=== PATIENT | female | born 1960 | race Asian ===

== ENCOUNTER 2016-12-10 19:24 | Inpatient (IN) | payer MEDICAID ==
[~2016-12-10] VITALS: Ht 160 cm; Wt 72.1 kg
[2016-12-10] MEDS ORDERED: NKM (19:32)
--- NOTE | 2016-12-10 19:43 | Emergency Room Report ---
History of Present Illness General Chief Complaint: Stroke Symptoms Source: Patient Present Illness HPI Patient presents with complaints of right-sided numbness and weakness Patient reports that yesterday at 12:00 noon So approximately 30 hours ago patient had a decreased sensation to her right facial area Which was followed by weakness to her right arm And right leg patient reports that she was having continued weakness in the right hand especially tried to turkey picker her, breakfast bowl this morning approximately 10 hours ago Also having difficulty walking because of weakness of the right leg Patient felt that she cannot see anyone because it was Sunday and apparently a family/friend notified her to go to the emergency room Patient denies any chest pain denies any shortness of breath Denies any difficulty breathing Allergies: Coded Allergies: No Known Allergies (Unverified , 12/10/16) Patient History Past Medical History: see triage record Pertinent Family History: none Now: No Reviewed Nursing Documentation: PMH: Agreed, PSxH: Agreed Review of Systems All Other Systems: negative except mentioned in HPI Physical Exam Vital Signs Date Time Temp Pulse Resp B/P Pulse Ox O2 Delivery O2 Flow Rate FiO2 12/10/16 19:28 97.9 70 18 165/91 94 Sp02 EP Interpretation: reviewed, normal General Appearance: no apparent distress Head: normocephalic, atraumatic Eyes: right eye other - There is evidence of what appears to be slight drooping of the upper eyelid compared to the left, bilateral eye PERRL ENT: hearing grossly normal, normal pharynx, other - Equal smile Neck: supple, thyroid normal Respiratory: lungs clear, normal breath sounds Cardiovascular #1: regular rate, rhythm, no edema Gastrointestinal: non tender, soft Genitourinary: no CVA tenderness Musculoskeletal: other - Patient has evidence of weakness on the right hand on the topography technician compared to the left hand, evaluation of the drift is somewhat nonspecific patient initially was able to lift her hand up on the right side, however on repeat evaluation patient has difficulty keeping the right arm elevated and shows evidence of possible drift down, Neurologic: alert, oriented x3, responsive, other - Patient's right lower extremity reveals weakness compared to the left upon attempting to lift she appears to be weaker also plantar flexion of the foot appears weaker than the left, , Skin: normal color, no rash Lymphatic: no adenopathy Medical Decision Making Diagnostic Impression: Primary Impression: Stroke-like episode Additional Impression: Right sided weakness ER Course Patient is complex with multiple differentials considered Patient was rushed to the CAT scan imaging At this time patient CAT scan was read as concerning chronicity left thalamus ischemia The patient's pulse well over the timeline for acute thrombolytic therapy As the symptoms initiated over 30 hours ago Patient initially requesting to be let go home after discussion of the importance of her findings and concerning findings Patient is agreeable to admission Patient was provided with aspirin Neurology consultation was made and patient admitted for further care Labs Test 12/10/16 20:10 White Blood Count 11.4 K/UL (4.8-10.8) Red Blood Count 4.47 M/UL (4.20-5.40) Hemoglobin 13.4 G/DL (12.0-16.0) Hematocrit 39.9 % (37.0-47.0) Mean Corpuscular Volume 89 FL (80-99) Mean Corpuscular Hemoglobin 30.1 PG (27.0-31.0) Mean Corpuscular Hemoglobin Concent 33.7 G/DL (32.0-36.0) Red Cell Distribution Width 11.8 % (11.6-14.8) Platelet Count 294 K/UL (150-450) Mean Platelet Volume 7.5 FL (6.5-10.1) Neutrophils (%) (Auto) 51.8 % (45.0-75.0) Lymphocytes (%) (Auto) 39.5 % (20.0-45.0) Monocytes (%) (Auto) 5.1 % (1.0-10.0) Eosinophils (%) (Auto) 2.6 % (0.0-3.0) Basophils (%) (Auto) 1.1 % (0.0-2.0) Prothrombin Time 9.2 SEC (9.30-11.50) Prothromb Time International Ratio 0.9 (0.9-1.1) Activated Partial Thromboplast Time 29 SEC (23-33) Sodium Level 136 mEQ/L (135-145) Potassium Level 3.8 mEQ/L (3.4-4.9) Chloride Level 94 mEQ/L (98-107) Carbon Dioxide Level 25 mEQ/L (20-30) Anion Gap 17 (5-15) Blood Urea Nitrogen 14 mg/dL (7-23) Creatinine 0.8 mg/dL (0.5-0.9) Estimat Glomerular Filtration Rate > 60 mL/min (>60) Glucose Level 217 mg/dL (74-106) Calcium Level 9.6 mg/dL (8.6-10.2) Total Bilirubin 0.2 mg/dL (0.0-1.2) Aspartate Amino Transf (AST/SGOT) 23 U/L (5-40) Alanine Aminotransferase (ALT/SGPT) 27 U/L (3-33) Alkaline Phosphatase 54 U/L (35-104) Total Creatine Kinase 133 U/L (26-140) Creatine Kinase MB 1.9 ng/mL (< 3.8) Creatine Kinase MB Relative Index 1.4 Troponin I < 0.30 ng/mL (<=0.30) Total Protein 7.6 g/dL (6.6-8.7) Albumin 4.3 g/dL (3.5-5.2) Globulin 3.3 g/dL Albumin/Globulin Ratio 1.3 (1.0-2.7) EKG Diagnostic Results Rate: normal Rhythm: NSR ST Segments: no acute changes Rhythm Strip Diag. Results EP Interpretation: yes Rate: 66 Rhythm: NSR, no PVC's, no ectopy Chest X-Ray Diagnostic Results EP Interpretation: Yes Findings: no consolidation, no effusion, no pneumothorax, other - There is a mildly increased curvature to the aorta Number of Views: 1 CT/MRI/US Diagnostic Results CT/MRI/US Diagnostic Results : Impression CT head read by radiology: No hemorrhage, small ischemic focus in the left thalamus of uncertain chronicity Last Vital Signs Date Time Temp Pulse Resp B/P Pulse Ox O2 Delivery O2 Flow Rate FiO2 12/10/16 19:28 97.9 70 18 165/91 94 Status: improved Disposition: ADMITTED INPATIENT Condition: Serious CORINE GARCIA D.O. Dec 10, 2016 19:43
[2016-12-10 19:45] VITALS: BP 170/76
[2016-12-10 20:26] LABS: BASOPHILS % (AUTO) 1.1 % (0.0-2.0); EOSINOPHILS % (AUTO) 2.6 % (0.0-3.0); LYMPHOCYTES % (AUTO) 39.5 % (20.0-45.0); MEAN CORPUSCULAR HEMOGLOBIN 30.1 PG (27.0-31.0); MEAN CORPUSCULAR HGB CONC 33.7 G/DL (32.0-36.0); MEAN CORPUSCULAR VOLUME 89 FL (80-99); MEAN PLATELET VOLUME 7.5 FL (6.5-10.1); MONOCYTES % (AUTO) 5.1 % (1.0-10.0); NEUTROPHILS % (AUTO) 51.8 % (45.0-75.0); PLATELET COUNT 294 K/UL (150-450); RED BLOOD COUNT 4.47 M/UL (4.20-5.40); RED CELL DISTRIBUTION WIDTH 11.8 % (11.6-14.8); WHITE BLOOD COUNT 11.4 K/UL (4.8-10.8)
[2016-12-10 20:38] LABS: INR 0.9 (0.9-1.1); PROTHROMBIN TIME 9.2 SEC (9.30-11.50)
[2016-12-10 20:44] LABS: ALANINE AMINOTRANSFERASE 27 U/L (3-33); ALBUMIN/GLOBULIN RATIO 1.3 (1.0-2.7); ANION GAP 17 (5-15); ASPARTATE AMINO TRANSFERASE 23 U/L (5-40); CALCIUM 9.6 mg/dL (8.6-10.2); CARBON DIOXIDE 25 mEQ/L (20-30); CHLORIDE 94 mEQ/L (98-107); CREATININE 0.8 mg/dL (0.5-0.9); GLOMERULAR FILTRATION RATE > 60 mL/min (>60); HEMOLYSIS 15; POTASSIUM 3.8 mEQ/L (3.4-4.9); SODIUM 136 mEQ/L (135-145); TOTAL PROTEIN 7.6 g/dL (6.6-8.7); TROPONIN I < 0.30 ng/mL (<=0.30)
[2016-12-10 20:54] LABS: CKMB 1.9 ng/mL (< 3.8)
[2016-12-10 22:01] VITALS: BP 168/100
[2016-12-10 23:32] VITALS: BP_SYST 133; BP_SYST 179; BP_DIAS 84; BP_DIAS 95
[2016-12-11] VITALS (7 sets, daily range): BP systolic 131–161; BP diastolic 72–97
[2016-12-11] MEDS ORDERED: NS w/KCl 20mEq 1,000 ML IV SCH
[2016-12-11] MEDS: NS w/KCl 20mEq 1,000 ML IV SCH ×3 (01:52→20:39)
[2016-12-11 08:07] LABS: CHOLESTEROL/HDL RATIO 7.2 (3.3-4.4)
[2016-12-11 08:13] LABS: HEMOGLOBIN A1C 8.9 % (< 6.0)
[2016-12-11 08:18] LABS: THYROID STIMULATING HORMONE 2.81 uIU/mL (0.300-4.500)
[2016-12-11 08:32] LABS: TROPONIN I < 0.30 ng/mL (<=0.30)
--- NOTE | 2016-12-11 09:06 | Diagnostic Imaging Report ---
Indications: Right-sided weakness Technique: Spiral acquisitions obtained through the brain. Angled axial and coronal 5 x 5 mm slices were reconstructed. Total dose length product 1369 mGycm. CTDI vol(s) 70 mGy Comparison: None Findings: There is mild age-related cerebral cortical volume loss. Normal size ventricles. There is expansion of the right maxillary sinus, which appears to be bicompartmental, with is probably a mucocele. The sinuses are otherwise unremarkable. The orbits are unremarkable. The calvarium is intact. There is a lacunar infarct posterior limb left internal capsule this is probably old, but could be subacute. No acute hemorrhage or edema. No mass effect nor midline shift. Normal louis-white differentiation. Impression: Age indeterminate although likely old left basal ganglia lacunar infarct. Consider MRI for more sensitive evaluation if clinically indicated Negative for acute intracranial bleed or mass effect Right maxillary sinus mucocele, incompletely visualized This agrees with the preliminary interpretation provided overnight by [facility]. The CT scanner at [facility] is accredited by the [employer] and the scans are performed using protocols designed to limit radiation exposure to as low as reasonably achievable to attain images of sufficient resolution adequate for diagnostic evaluation.
[2016-12-11] MEDS: Pantoprazole Inj IVP SCH (09:28)
[2016-12-11] MEDS: Aspirin EC 81mg tab ORAL SCH (09:28)
--- NOTE | 2016-12-11 12:50 | Neurology Progress Note ---
Objective Physical Exam Last Vital Signs Date Time Temp Pulse Resp B/P Pulse Ox O2 Delivery O2 Flow Rate FiO2 12/11/16 11:29 97.3 70 18 161/97 98 Room Air Laboratory Tests Test 12/10/16 20:10 12/11/16 06:19 White Blood Count 11.4 K/UL (4.8-10.8) H Red Blood Count 4.47 M/UL (4.20-5.40) Hemoglobin 13.4 G/DL (12.0-16.0) Hematocrit 39.9 % (37.0-47.0) Mean Corpuscular Volume 89 FL (80-99) Mean Corpuscular Hemoglobin 30.1 PG (27.0-31.0) Mean Corpuscular Hemoglobin Concent 33.7 G/DL (32.0-36.0) Red Cell Distribution Width 11.8 % (11.6-14.8) Platelet Count 294 K/UL (150-450) Mean Platelet Volume 7.5 FL (6.5-10.1) Neutrophils (%) (Auto) 51.8 % (45.0-75.0) Lymphocytes (%) (Auto) 39.5 % (20.0-45.0) Monocytes (%) (Auto) 5.1 % (1.0-10.0) Eosinophils (%) (Auto) 2.6 % (0.0-3.0) Basophils (%) (Auto) 1.1 % (0.0-2.0) Prothrombin Time 9.2 SEC (9.30-11.50) L Prothromb Time International Ratio 0.9 (0.9-1.1) Activated Partial Thromboplast Time 29 SEC (23-33) Sodium Level 136 mEQ/L (135-145) Potassium Level 3.8 mEQ/L (3.4-4.9) Chloride Level 94 mEQ/L (98-107) L Carbon Dioxide Level 25 mEQ/L (20-30) Anion Gap 17 (5-15) H Blood Urea Nitrogen 14 mg/dL (7-23) Creatinine 0.8 mg/dL (0.5-0.9) Estimat Glomerular Filtration Rate > 60 mL/min (>60) Glucose Level 217 mg/dL (74-106) H Calcium Level 9.6 mg/dL (8.6-10.2) Total Bilirubin 0.2 mg/dL (0.0-1.2) Aspartate Amino Transf (AST/SGOT) 23 U/L (5-40) Alanine Aminotransferase (ALT/SGPT) 27 U/L (3-33) Alkaline Phosphatase 54 U/L (35-104) Total Creatine Kinase 133 U/L (26-140) Creatine Kinase MB 1.9 ng/mL (< 3.8) Creatine Kinase MB Relative Index 1.4 Troponin I < 0.30 ng/mL (<=0.30) < 0.30 ng/mL (<=0.30) Total Protein 7.6 g/dL (6.6-8.7) Albumin 4.3 g/dL (3.5-5.2) Globulin 3.3 g/dL Albumin/Globulin Ratio 1.3 (1.0-2.7) Hemoglobin A1c 8.9 % (< 6.0) H Triglycerides Level 226 mg/dL (< 150) H Cholesterol Level 223 mg/dL (< 200) H LDL Cholesterol 147 mg/dL (60-99) H HDL Cholesterol 31 mg/dL (> 60) Cholesterol/HDL Ratio 7.2 (3.3-4.4) H Thyroid Stimulating Hormone (TSH) 2.810 uIU/mL (0.300-4.500) Impression/Recommendations Problems: (1) Acute ischemic left MCA stroke (2) HTN (hypertension) (3) Hyperlipidemia (4) Anxiety Status: unchanged Recommendations # dictated [id number] PHIL HUDSON Dec 11, 2016 12:50
--- NOTE | 2016-12-11 12:52 | Diagnostic Imaging Report ---
Indications: Right-sided weakness and numbness, evidence of acute CVA on recent MRI Technique: 3D [id number] images obtained through the [facility] [place]. MIP reconstructions were generated in multiple rotational projections Comparison: MRI performed at same time, 12/10/[address] Findings: The distal internal carotid arteries are patent and nonstenotic. Bilateral A1 segments and proximal some anterior cerebral arteries are patent, nonstenotic. There is a patent anterior communicating artery. There is a suggestion of a high-grade stenosis of the left M1 segment, with diffusely diminished flow within the distal middle cerebral circulation. The right M1 segment and branches appear unremarkable. The posterior circulation demonstrates small codominant vertebral arteries with a high confluence. There is a high takeoff of the right PICA. Patent nonstenotic basilar artery and bilateral superior cerebellar arteries. There is origin of the left posterior cerebral artery. No right posterior communicating artery is demonstrated. Patent right P1 segment and proximal branches. There is no evidence of aneurysm or vascular malformation Impression: Findings consistent with high-grade stenosis of the left middle cerebral artery origin and resultant marked diminution of flow within the left middle cerebral artery distribution. Negative for evidence of aneurysm or vascular malformation Variant [place] anatomy, as described
--- NOTE | 2016-12-11 13:56 | Diagnostic Imaging Report ---
Indication: 56-year-old female inpatient with right-sided weakness and numbness, recent abnormal head CT Technique: sagittal T1 fast spin echo, axial T1 and T2 FLAIR PROPELLER, axial T2 FS PROPELLER, T2* GRE, axial diffusion weighted images, post contrast axial and coronal T1 FLAIR PROPELLER images. ADC and exponential ADC maps generated Comparison: Reference made to head CT 8 12/10/2016 Findings: . There is an area of restricted diffusion in the left basal ganglia region, involving the posterior limb of the internal capsule and the posterior thalamus, corresponding to area of hypoattenuation seen on recent head CT. Is also abnormal increased signal on the T2-weighted images and decreased signal on the T1-weighted images. No other foci of restricted diffusion are demonstrated. No acute hemorrhage. No mass effect or midline shift. Nonspecific T2 hyperintensities are seen in the right frontal, right parietal, and right posterior temporal deep white matter. No mass effect nor midline shift. No abnormal contrast enhancement. There is minimal prominence of the ventricles and extra-axial CSF spaces. There is complete opacification of the bipartite right maxillary sinus. The vascular flow voids are preserved.. Impression: Focus of diffusion restriction in the left basal ganglia region, as described, consistent with acute/subacute lacunar infarct. This corresponds to the abnormality described on recent CT scan. Negative for acute intracranial bleed, mass effect, or contrast enhancing lesion. Nonspecific foci of increased T2 hyperattenuation in the right convexity the white matter. Most likely represent foci of chronic ischemic change, demyelinating disease also a possibility but less likely.
--- NOTE | 2016-12-11 13:56 | Diagnostic Imaging Report ---
Indication: Chest pain Technique: One view of the chest Comparison: none Findings: Lungs and pleural spaces are clear. Heart size is normal . Aorta is tortuous and ectatic Impression: No acute process This agrees with the preliminary interpretation provided by the emergency room physician
[2016-12-11] MEDS: NovoLOG Insulin Flexpen SUBQ SCH ×2 (16:15→20:39)
--- NOTE | 2016-12-11 21:18 | Consultation ---
DATE OF CONSULTATION: 12/11/2016 NEUROLOGICAL CONSULTATION CONSULTING PHYSICIAN: Alexis Plascencia M.D. REFERRING PHYSICIAN: Bridgett Mahoney M.D. HISTORY OF PRESENT ILLNESS: The patient is a 56 years old female, seen in neurological consultation to evaluate acute stroke. The patient informed me that she has been under significant stress in the last two years. She has occasional elevated blood pressure and abnormal lipid panel, but was taken no medications. The day prior to admission, she went to bed noting that she has some numbness in the right side of the face and morning she woke up with numbness in her right face, right side of the body, weakness in the right upper and right lower extremity. Paramedics were called to the scene. She was brought to the emergency room, was complaining of being unable to lift objects in her right arm, significant limping when ambulation. Her vital signs on admission included blood pressure 165/91, heart rate of 70, and temperature 97.9. There was evidence of weakness on the right side of the body. The patient had a stat CT of the head revealed old left basal ganglia lacunar infarct, right maxillary sinus with no evidence of acute abnormalities, no midline shift. Laboratory work included CBC study with a WBC of 11.4, coagulation panel unremarkable. Chemistry panel with elevated triglycerides , cholesterol 223, LDL 147, hemoglobin A1C 8.9, blood sugar 217, and anion gap of 17. Following admission, vital signs remained stable, blood pressure fluctuating up to 161/97. PAST MEDICAL HISTORY: As mentioned, the patient has a history of hypertension, hyperlipidemia, now appears to have diabetes as well. History of ongoing stress for the last two years. Treatment limited to vitamins. FAMILY HISTORY: Noncontributory. SOCIAL HISTORY: She is single. She has a boyfriend. No alcohol. No drug abuse. Nonsmoker. 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 REVIEW OF SYMPTOMS: At this time, the patient has numbness and weakness in the right upper and right lower extremities. Difficulty ambulation, but denies having swallowing issues. PHYSICAL EXAMINATION: GENERAL: A well-developed, well-nourished female, not in acute distress, lying comfortably in bed. VITAL SIGNS: Blood pressure 161/97, respirations 18, and temperature 97.3. HEENT: Head, normocephalic. No evidence of injuries. Eyes, ears, and throat are clear. NECK: Supple. No meningeal signs. MUSCULOSKELETAL: Unremarkable. There are no deformities. Peripheral pulses 1+ and symmetric. MENTAL STATUS: Alert and oriented x3. Speech is fluent. Language intact. No aphasia. No apraxia. Cognitive function normal. Emotional, labile. CRANIAL NERVE II: Pupils both responding to light and accommodation. Extraocular movements intact. No nystagmus. Visual mora are full to confrontation. CRANIAL NERVE V: Normal corneal responses. Reduced right facial sensation to pinprick. CRANIAL NERVE VII: Slight droop, right nasolabial fold. CRANIAL NERVE VIII: Normal hearing. CRANIAL NERVES IX THROUGH XII: Tongue is in midline. MOTOR EXAMINATION: Motor examination revealed weakness, 3/5 right upper and right lower extremity. Normal muscle tone. Deep tendon reflexes 2+ and slightly higher on the right. Plantar response is questionable. Babinski on the right. SENSORY EXAMINATION: Decreased response to pin stimulation, right upper and right lower extremity. Gait not tested, but the patient reported being able to ambulate on her own holding to the frost. IMPRESSION: 1. Acute left MCA distribution ischemic stroke with right hemiparesis and right radha-sensory loss. 2. Hypertension. 3. Diabetes. 4. Hyperlipidemia. RECOMMENDATIONS: The patient who was not treated previously for major stroke risk factors, we will restart treatment for high blood pressure control, diabetes control, and statins. In addition, she will be maintained on aspirin 81 mg daily. The patient to be seen by PT/OT and speech therapy, acute rehabilitation anticipated. Thank you for allowing me to see this interesting patient in neurological consultation. Alexis Plascencia M.D. DR: LION JOB#: [id number] CC:
--- NOTE | 2016-12-11 22:18 | History and Physical Report ---
DATE OF ADMISSION: 12/10/2016 CHIEF COMPLAINT: Right-sided weakness and numbness. HISTORY OF PRESENT ILLNESS: This is a 56-year-old female, who lives at [facility] and is visiting the area. Yesterday morning the patient noticed a right-sided weakness and numbness. The patient has a history of hypertension, but she is noncompliant with therapy. The patient does not have a regular followup and neither she is taking any antihypertensive medications. Yesterday morning, she noticed right-sided weakness, inability to swallow, difficulty walking and numbness. She was told to go to the emergency department, which she did. PAST MEDICAL HISTORY: Hypertensive heart disease, left carotid stenosis, and type 2 diabetes mellitus. MEDICATIONS: None. ALLERGIES: No known drug allergies. FAMILY HISTORY: No known problems. SOCIAL HISTORY: She is nonsmoker and nondrinker. There is no history of illicit drug abuse. REVIEW OF SYSTEMS: HEENT: Hearing and eyesight are normal. Endocrine: No history of diabetes, thyroid, or adrenal problems. Respiratory: She denies shortness of breath, cough, or hemoptysis. Cardiovascular: She denies chest pain or palpitations. Genitourinary: She denies dysuria, frequency, urgency, or hematuria. Neurological: Please refer to history of present illness. PHYSICAL EXAMINATION: GENERAL: This is an elderly oriented female, who is in no acute distress. VITAL SIGNS: Blood pressure 161/97, pulse 70 regular, respirations 20, and temperature 97.3 degrees oral. HEENT: She has a right facial droop. NECK: Supple. Trachea midline. There was no lymphadenopathy or thyromegaly. There were no carotid bruits. LUNGS: Clear to auscultation and percussion. HEART: Regular rate and rhythm without rubs, murmurs, or gallops. ABDOMEN: Soft and nontender. Bowel sounds were active. EXTREMITIES: No clubbing, cyanosis, or edema. NEUROLOGIC: She is alert and oriented x4. Cranial nerves II through XII were intact except for the right facial droop. She has a right hemiparesis. LABORATORY AND ANCILLARY DATA: MRA and MRI of the neck show high-grade stenosis of the left middle cerebral artery. Head CT showed age indeterminate or likely old left basal ganglia lacunar infarct. CBC is within normal limits. CMP, glucose 217 and cholesterol 223. Troponin levels were within normal limits. Hemoglobin A1c is 8.9. ASSESSMENT: High-grade left carotid stenosis in a patient with a new cerebrovascular accident. PLAN: 1. Obtain MRI. 2. Obtain vascular surgery consult. 3. We will add 2000 ADA diet. Bridgett Mahoney M.D. DR: MELANIA JOB#: [id number] CC:
[2016-12-12] VITALS: BP 144/71
[2016-12-12 04:00] VITALS: BP 156/97
[2016-12-12] MEDS: NovoLOG Insulin Flexpen SUBQ SCH ×3 (06:22→16:36)
[2016-12-12] MEDS: NS w/KCl 20mEq 1,000 ML IV SCH (07:32)
[2016-12-12] MEDS: Aspirin EC 81mg tab ORAL SCH (08:42)
[2016-12-12] MEDS: Pantoprazole Inj IVP SCH (08:42)
--- NOTE | 2016-12-12 08:44 | Diagnostic Imaging Report ---
Indication: Right-sided weakness, acute CVA, abnormal cerebral MRA Technique: IV administration nonionic contrast. Arterial phase spiral acquisitions obtained through the neck. Multiplanar reconstructions were generated. Total dose length product 2072 mGycm. CTDIvol(s) 16x3, 99, 59 mGy. Radiation dose was minimized using automated exposure control Comparison: None Findings: Mildly ectatic but nonaneurysmal aortic arch, which deviates the trachea to the right.. Tortuous, widely patent nonstenotic right brachiocephalic artery. Tortuous but widely patent and nonstenotic right common carotid and internal carotid arteries. There is some calcific atherosclerotic plaquing of the carotid siphon. Tortuous, widely patent right proximal subclavian artery. Widely patent and nonstenotic right vertebral artery. It is diffusely small in caliber, and the left vertebral artery is the dominant side. Widely patent and nonstenotic left common carotid artery and left internal carotid artery. The internal carotid artery is tortuous. Widely patent and nonstenotic left proximal subclavian artery and left vertebral artery. There is no evidence of cervical mass or adenopathy. There is filling of the right maxillary sinus by an expansile mass with bony erosion, bleed also reported on earlier studies. The remaining sinuses are unremarkable. The orbits are unremarkable. The upper airway is unremarkable. The thyroid is unremarkable. The included lung demonstrate diffuse mild groundglass opacity. Impression: Negative for evidence of significant extracranial cerebrovascular insufficiency Mass lesion expanding the right maxillary sinus and eroding bone. Most likely a mucocele, but neoplasm cannot be completely ruled out. Recommend ENT consultation as clinically indicated Nonspecific diffuse faint pulmonary groundglass opacities The CT scanner at [facility] is accredited by the [employer] and the scans are performed using protocols designed to limit radiation exposure to as low as reasonably achievable to attain images of sufficient resolution adequate for diagnostic evaluation.
[2016-12-12 08:49] VITALS: BP 136/84
--- NOTE | 2016-12-12 11:27 | Cardiology Report ---
APPROVED REPORT EKG Measurement Heart [id number] Normal sinus rhythm Normal ECG
[2016-12-12 11:40] VITALS: BP 155/88
--- NOTE | 2016-12-12 12:10 | General Progress Note ---
Assessment/Plan Assessment/Plan New CVA Lt. JUAN JOSE territory witl Lt. ICA stenosis? - Vas. Surgery to advise. HTN CVD - BP control. AODM - Glycemic Control. Subjective Allergies: Coded Allergies: No Known Allergies (Unverified , 12/10/16) Subjective No new c/o Objective Last 24 Hour Vital Signs Date Time Temp Pulse Resp B/P Pulse Ox O2 Delivery O2 Flow Rate FiO2 12/12/16 11:40 97.0 69 18 155/88 98 Room Air 12/12/16 08:49 97.5 64 18 136/84 97 Room Air 12/12/16 08:42 64 136/84 12/12/16 07:37 61 12/12/16 04:00 62 12/12/16 04:00 97.0 63 18 156/97 99 Room Air 12/12/16 00:00 97.4 62 18 144/71 97 Room Air 12/12/16 00:00 65 12/11/16 20:00 68 12/11/16 20:00 98.5 65 18 150/85 97 Room Air 12/11/16 16:00 73 12/11/16 16:00 97.5 85 18 152/95 98 Room Air Intake and Output 12/11/16 12/12/16 19:00 07:00 Intake Total 1420 ml 1360 ml Output Total 1000 ml 500 ml Balance 420 ml 860 ml Intake Oral 320 ml 300 ml IV Total 1100 ml 1060 ml Output Urine Total 1000 ml 500 ml # Voids 7 Height (Feet): 5 Height (Inches): 3.00 Weight (Pounds): 159 Objective Cv RR Lungs CTA Abd SNT. BS + E no CCE Rt hemiparesis KISHAN DEL ROSARIO Dec 12, 2016 12:10
--- NOTE | 2016-12-12 13:22 | Neurology Progress Note ---
Interim History Interim History ROS Limited/Unobtainable: No Complaints: R side weakness Events: sl better Objective Physical Exam Last Vital Signs Date Time Temp Pulse Resp B/P Pulse Ox O2 Delivery O2 Flow Rate FiO2 12/12/16 11:40 97.0 69 18 155/88 98 Room Air General: well developed, no acute distress, other - mod obese Head: normocophalic, atraumatic Neck: no rigidity, other Neurologic Exam Mental Status: awake, alert, oriented x4, normal cognition, good mathematical skills, normal recent memory, normal remote memory, preserved visuospatial function Speech: normal speech, no dysarthia Language: normal language, no aphasia Cranial Nerve II: fundus normal, visual mora, no papilledema Cranial Nerves III, IV, : PERRLA, EOMI, pupils Cranial Nerve V: normal facial sensations, temporales function normal, masseters function normal, pterygoids function normal Cranial Nerve VII: normal facial expressions, other - R face droop Cranial Nerve VIII: normal hearing, no nystagmus Cranial Nerve IX: normal palate elevation, gag response Cranial Nerve X: no voice hoarseness Cranial Nerve XI: SCM symmetric, trapezii function normal Cranial Nerve XII: tongue midline, no tongue atrophy/fasciculations Motor System: normal muscle tone, no involuntary movement, no muscle wasting, other - 4/5 R arm leg Sensory: other - reduced pin sens R side Coordination: other - clumsy R FN and HS test Deep Tendon Reflexes: 0 ankle (L), 0 ankle (R), 0 bicep (L), 0 bicep (R), 0 brachioradialis (L), 0 brachioradialis (R), 0 knee (L), 0 knee (R), 0 tricep (L) , 0 tricep (R) Reflexes: mute plantar (L), mute plantar (R) Impression/Recommendations Problems: (1) Acute ischemic left MCA stroke (2) HTN (hypertension) (3) Hyperlipidemia (4) Diabetes mellitus (5) L mca stenosis (6) R maxillary sinus mass lesion Status: stable, unchanged Recommendations # dictated [id number] asa/statins ENT eval pt/ot/rehab PHIL HUDSON Dec 12, 2016 13:22
--- NOTE | 2016-12-12 14:00 | Cardiology Report ---
APPROVED REPORT EXAM: Two-dimensional and M-mode echocardiogram with Doppler and color Doppler. INDICATION Abnormal cardiac study M-Mode DIMENSIONS IVSd1.0 (0.7-1.1cm)Left Atrium (MM)3.7 (1.6-4.0cm) LVDd4.9 (3.5-5.6cm)Aortic Root2.7 (2.0-3.7cm) PWd1.2 (0.7-1.1cm)Aortic Cusp Exc.1.7 (1.5-2.0cm) LVDs3.2 (2.5-4.0cm) PWs1.9 cm TEchnically difficult study Normal left ventricular chamber size, systolic function and wall motion. Left ventricular ejection fraction estimated to be 60-65 %. Moderate left ventricular hypertrophy by 2-D. Anterior Echo-free space, may be due to pericardial fat or effusion. All other cardiac chamber sizes are within normal limits. Mild focal aortic valve sclerosis with adequate cusp excursion. Mildly thickened mitral valve leaflets with normal excursion. Mild mitral annulus and aortic root calcification. Pulmonic valve not well visualized. Normal tricuspid valve structure. IVC at normal size with physiologic collapse. A color flow and spectral Doppler study was performed and revealed: No aortic regurgitation. Trace to mild mitral regurgitation. Mitral diastolic velocities suggest reduced left ventricular relaxation c/w mild LV diastolic dysfunction (Grade I ). Mild tricuspid regurgitation. Tricuspid systolic velocities suggests peak right ventricular systolic pressure of 29 mmHg.
--- NOTE | 2016-12-13 13:20 | Diagnostic Imaging Report ---
APPROVED REPORT CPT Code: 22332 Vascular Symptoms CVA/TIA: CAROTID (BILATERAL) - Imaging reveals no significant plaque within the right and left extracranial carotid arteries. The Doppler spectral flow analysis is within normal limits throughout the extracranial carotid arteries bilaterally. VERTEBRAL- The vertebral arteries are within normal limits.
--- NOTE | 2016-12-13 13:20 | Diagnostic Imaging Report ---
APPROVED REPORT CPT Code: 25394 Present Symptoms Comments: Numbness BILATERAL: Imaging reveals a patent deep venous system bilaterally. There is no evidence of thrombus within the femoral, popliteal or tibial segments. The greater saphenous veins are also within normal limits. Doppler indicates normal spontaneous flow within these segments.
--- NOTE | 2016-12-13 19:43 | Discharge Summary ---
Discharge Summary Hospital Course Date of Admission Dec 10, 2016 at 20:31 Date of Discharge Dec 12, 2016 at 16:50 Admitting Diagnosis right sided weakness HPI Oseas Danielle is a 56 year old female who was admitted on Dec 10, 2016 at 20:31 for Right Sided Weakness Hospital Course [id number] Discharge Discharge Disposition Patient left AMA Discharge Diagnoses: Kaela Colon NP Dec 13, 2016 19:43
--- NOTE | 2016-12-14 01:58 | Discharge Summary 2 SIG ---
DATE OF ADMISSION: 12/10/2016 DATE OF DISCHARGE: 12/12/2016 BRIEF HOSPITAL COURSE: The patient is a 56-year-old female, who lives at [facility] and is visiting the area, a day prior noticed right-sided weakness and numbness. She has history of hypertension and is noncompliant with therapy. The patient does not have any regular follow-ups and neither is she taking any antihypertensive medications. She noticed right-sided weakness, inability to swallow, difficulty walking with numbness, and she was taken to [facility] ED, where MRA and MRI of the neck showed high-grade stenosis of left middle cerebral artery. Head CT showed age indeterminate, likely old basal ganglia lacunar infarct. Dr. Plascencia was consulted. The patient had an acute left MCA distribution ischemic stroke with right hemiparesis and right hemisensory loss and was given aspirin and statins and was ordered physical therapy and occupational therapy. However, full treatment was not carried out as the patient signed out against medical advice. FINAL DIAGNOSES: 1. Acute left middle cerebral artery ischemic stroke with right hemiparesis and right hemisensory loss. 2. Hypertension. 3. Diabetes mellitus. 4. Right maxillary sinus mass lesion. 5. Left middle cerebral artery stenosis. 6. Noncompliance as patient signed out against medical advise. Bridgett Mahoney M.D. I have been assigned to dictate discharge summary on this account and I was not involved in the patient's management. Kaela Colon N.P. DR: BHAVNA JOB#: [id number] CC: ELISHA
== END 2016-12-12 16:50 | disposition left against medical advice (07) | DRG 45 ==
LOC: EMR 20:03 → 2E 20:31 → EDBEDREQ 23:44 → 2E 12-11 00:40
DX: I63.512 Cerebral infarction due to unspecified occlusion or stenosis of left middle cerebral artery (principal); G81.91 Hemiplegia, unspecified affecting right dominant side; I11.9 Hypertensive heart disease without heart failure; E78.5 Hyperlipidemia, unspecified; Z91.19 Patient's noncompliance with other medical treatment and regimen; I65.22 Occlusion and stenosis of left carotid artery; E11.9 Type 2 diabetes mellitus without complications; J34.89 Other specified disorders of nose and nasal sinuses; F41.9 Anxiety disorder, unspecified; Z86.73 Personal history of transient ischemic attack (TIA), and cerebral infarction without residual deficits
CPT/HCPCS: 36415; 70450; 70498; 70544; 70553; 71010; 80053; 80061; 82550; 82553; 82962; 83036; 84443; 84484; 85025; 85610; 85730; 93005; 93306; 93880; 93970; A9585; J1815

== ENCOUNTER 2018-01-08 00:29 | Emergency (ER) | payer MEDICAID ==
[~2018-01-08] VITALS: Ht 160 cm; Wt 68.0 kg
[~2018-01-08 00:29] MED LIST: NKM
[2018-01-08 00:59] VITALS: BP 174/96
--- NOTE | 2018-01-08 01:20 | Emergency Room Report ---
History of Present Illness General Chief Complaint: Headache Source: Patient Present Illness HPI 57-year-old female presents ED for evaluation. Patient plating of headache 2 days. Frontal, 9 out of 10, sharp, nonradiating. Per triage blood pressure is also high. Patient notes history of hypertension states she is compliant with her meds. States she also is under a lot of stress because of her job. Patient has prior history of CVA with some residual weakness. Denies any new weakness. Denies alcohol or drug use. Denies chest pain or shortness of breath. No other aggravating relieving factors. Denies any other associated symptoms Allergies: Coded Allergies: No Known Allergies (Unverified , 12/10/16) Patient History Past Medical History: DM, HTN, CVA/TIA Past Surgical History: none Pertinent Family History: none Social History: Denies: smoking, alcohol use, drug use Last Menstrual Period: none Now: No Immunizations: UTD Reviewed Nursing Documentation: PMH: Agreed; PSxH: Agreed Nursing Documentation-PMH Hx Cardiac Problems: Yes Hx Hypertension: Yes Hx Diabetes: Yes - bordeline DM Hx Cancer: No Hx Gastrointestinal Problems: Yes - Gastritis Hx Neurological Problems: No Hx Cerebrovascular Accident: Yes - stroke 2016, right side weakness Review of Systems All Other Systems: negative except mentioned in HPI Physical Exam Vital Signs Date Time Temp Pulse Resp B/P (MAP) Pulse Ox O2 Delivery O2 Flow Rate FiO2 01/08/18 00:32 98.5 187/104 98.4 01/08/18 00:59 75 16 98 Room Air Sp02 EP Interpretation: reviewed, normal General Appearance: no apparent distress, alert, GCS 15, non-toxic Head: normocephalic, atraumatic Eyes: bilateral eye normal inspection, bilateral eye PERRL ENT: hearing grossly normal, normal pharynx, no angioedema, normal voice Neck: full range of motion, supple/symm/no masses Respiratory: chest non-tender, lungs clear, normal breath sounds, speaking full sentences Cardiovascular #1: regular rate, rhythm, no edema Cardiovascular #2: 2+ carotid (R), 2+ carotid (L), 2+ radial (R), 2+ radial (L) , 2+ dorsalis pedis (R), 2+ dorsalis pedis (L) Gastrointestinal: normal bowel sounds, non tender, soft, non-distended, no guarding, no rebound Rectal: deferred Genitourinary: normal inspection, no CVA tenderness Musculoskeletal: back normal, gait/station normal, normal range of motion, non- tender Neurologic: alert, oriented x3, responsive, channel specialist III-XII nml as tested, motor strength/tone normal, sensory intact, speech normal Psychiatric: judgement/insight normal, memory normal, mood/affect normal, no suicidal/homicidal ideation Reflexes: 3+ bicep (R), 3+ bicep (L), 3+ tricep (R), 3+ tricep (L), 3+ knee (R) , 3+ knee (L) Skin: normal color, no rash, warm/dry, well hydrated Lymphatic: no adenopathy Medical Decision Making Diagnostic Impression: Primary Impression: Headache Qualified Codes: R51 - Headache Additional Impression: HTN (hypertension) Qualified Codes: I10 - Essential (primary) hypertension ER Course Hospital Course 57-year-old female presents ED complaining of elevated BP, c/o headache Differential diagnoses include: hypertensive urgency, hypertensive emergency, arrythmia, [place]/ACS Clinical course Patient placed on stretcher. After initial history and physical I ordered labs , EKG, chest x-ray. CT head labs reviewed- all electrolytes normal, troponins negative, no leukocytosis, hemoglobin/hematocrit stable EKG - NSR no acute ischemic changes interpreted by me Chest x-ray-no cardiomegaly, no rib fracture, no pneumothorax, no acute process CT head no acute process Patient given hydralazine in ED. On reassessment headache and blood pressure improved. No focal neurological deficits. Given negative workup I believe patient be safely discharged I. I feel this is a highly complex case requiring extensive working including EKG/Rhythm strip, Xray/CT/US, Blood/urine lab work, repeat exams while in ED, and administration of strong opiates/narcotics for pain control, admission to hospital or close patient follow up. Diagnosis - hypertension, headache Stable and discharged to home. Instructed to followup with PMD. Return to ED if symptoms recur or worsen Labs Test 01/08/18 01:00 White Blood Count 7.9 K/UL (4.8-10.8) Red Blood Count 4.00 M/UL (4.20-5.40) Hemoglobin 12.4 G/DL (12.0-16.0) Hematocrit 35.2 % (37.0-47.0) Mean Corpuscular Volume 88 FL (80-99) Mean Corpuscular Hemoglobin 30.9 PG (27.0-31.0) Mean Corpuscular Hemoglobin Concent 35.2 G/DL (32.0-36.0) Red Cell Distribution Width 11.6 % (11.6-14.8) Platelet Count 240 K/UL (150-450) Mean Platelet Volume 7.3 FL (6.5-10.1) Neutrophils (%) (Auto) 50.0 % (45.0-75.0) Lymphocytes (%) (Auto) 36.4 % (20.0-45.0) Monocytes (%) (Auto) 10.2 % (1.0-10.0) Eosinophils (%) (Auto) 2.6 % (0.0-3.0) Basophils (%) (Auto) 0.8 % (0.0-2.0) Sodium Level 136 MMOL/L (136-145) Potassium Level 3.3 MMOL/L (3.5-5.1) Chloride Level 101 MMOL/L (98-107) Carbon Dioxide Level 30 MMOL/L (21-32) Anion Gap 5 mmol/L (5-15) Blood Urea Nitrogen 12 mg/dL (7-18) Creatinine 0.8 MG/DL (0.55-1.30) Estimat Glomerular Filtration Rate > 60 mL/min (>60) Glucose Level 177 MG/DL (74-106) Calcium Level 9.1 MG/DL (8.5-10.1) Total Bilirubin 0.4 MG/DL (0.2-1.0) Aspartate Amino Transf (AST/SGOT) 14 U/L (15-37) Alanine Aminotransferase (ALT/SGPT) 20 U/L (12-78) Alkaline Phosphatase 53 U/L (46-116) Total Creatine Kinase 96 U/L (26-308) Creatine Kinase MB 0.6 NG/ML (0.0-3.6) Creatine Kinase MB Relative Index 0.6 Troponin I 0.000 ng/mL (0.000-0.056) Total Protein 8.3 G/DL (6.4-8.2) Albumin 3.8 G/DL (3.4-5.0) Globulin 4.5 g/dL Albumin/Globulin Ratio 0.8 (1.0-2.7) EKG Diagnostic Results Rate: normal Rhythm: NSR ST Segments: no acute changes ASA given to the pt in ED: No Rhythm Strip Diag. Results EP Interpretation: yes Rhythm: NSR, no PVC's, no ectopy Chest X-Ray Diagnostic Results Chest X-Ray Diagnostic Results : Chest X-Ray Ordered: Yes # of Views/Limited/Complete: 1 View Indication: Chest Pain EP Interpretation: Yes Interpretation: no consolidation, no effusion, no pneumothorax, no acute cardiopulmonary disease Impression: No acute disease Electronically Signed by: Electronically signed by Radu Corrales MD CT/MRI/US Diagnostic Results CT/MRI/US Diagnostic Results : Imaging Test Ordered: CT Head Impression no acute process Last Vital Signs Date Time Temp Pulse Resp B/P (MAP) Pulse Ox O2 Delivery O2 Flow Rate FiO2 01/08/18 00:59 98.4 75 16 174/96 98 Room Air 98.4 Status: improved Disposition: HOME, SELF-CARE Condition: Stable Referrals: NON PHYSICIAN (PCP) Radu Corrales MD Jan 08, 2018 01:20
[2018-01-08 01:32] LABS: BASOPHILS % (AUTO) 0.8 % (0.0-2.0); EOSINOPHILS % (AUTO) 2.6 % (0.0-3.0); HEMATOCRIT 35.2 % (37.0-47.0); HEMOGLOBIN 12.4 G/DL (12.0-16.0); LYMPHOCYTES % (AUTO) 36.4 % (20.0-45.0); MEAN CORPUSCULAR VOLUME 88 FL (80-99); MONOCYTES % (AUTO) 10.2 % (1.0-10.0); PLATELET COUNT 240 K/UL (150-450); RED CELL DISTRIBUTION WIDTH 11.6 % (11.6-14.8); WHITE BLOOD COUNT 7.9 K/UL (4.8-10.8)
[2018-01-08 01:37] LABS: ANION GAP 5 mmol/L (5-15); BLOOD UREA NITROGEN 12 mg/dL (7-18); CALCIUM 9.1 MG/DL (8.5-10.1); CARBON DIOXIDE 30 MMOL/L (21-32); CHLORIDE 101 MMOL/L (98-107); CREATININE 0.8 MG/DL (0.55-1.30); POTASSIUM 3.3 MMOL/L (3.5-5.1); SODIUM 136 MMOL/L (136-145)
[2018-01-08 01:51] LABS: ALANINE AMINOTRANSFERASE 20 U/L (12-78); ALBUMIN 3.8 G/DL (3.4-5.0); ALBUMIN/GLOBULIN RATIO 0.8 (1.0-2.7); ALKALINE PHOSPHATASE 53 U/L (46-116); ASPARTATE AMINO TRANSFERASE 14 U/L (15-37); BILIRUBIN,TOTAL 0.4 MG/DL (0.2-1.0); CKMB 0.6 NG/ML (0.0-3.6); CREATINE KINASE 96 U/L (26-308)
[2018-01-08 02:04] VITALS: BP 167/73
[2018-01-08 02:32] VITALS: BP 148/77
[2018-01-08 02:33] VITALS: BP 148/77
--- NOTE | 2018-01-08 09:17 | Diagnostic Imaging Report ---
Indication: Chest pain Technique: One view of the chest Comparison: 12/10/2016 Findings: The heart is borderline enlarged. Lungs and pleural spaces are clear. The aorta is tortuous and ectatic. No significant interim change Impression: Borderline cardiomegaly. No acute process
--- NOTE | 2018-01-08 09:21 | Diagnostic Imaging Report ---
Indications: Headache Technique: Spiral acquisitions obtained through the brain. Angled axial and coronal 5 x 5 mm slices were reconstructed. Total dose length product 1379.09 mGycm. CTDI vol(s) 70.38 mGy. Dose reduction achieved using automated exposure control Comparison: 12/10/[address], 12/11/2016 MRI Findings: There is age-related cortical volume loss. Old lacunar infarct is seen in the posterior left thalamus. Normal louis-white differentiation. No acute hemorrhage or edema. No mass effect nor midline shift. The calvarium is intact. There is right maxillary sinus opacification. When compared to prior exam, the thalamic lacunar infarct appears larger, although does not appear acute. Note that prior MRI demonstrates of this was acute/subacute at that time Other findings are similar to previous Impression: Age-related cortical volume loss Old left thalamic lacunar infarct Negative for acute intracranial bleed or mass effect Right maxillary sinus disease This agrees with the preliminary interpretation provided overnight by [facility]. The CT scanner at [facility] is accredited by the [employer] and the scans are performed using protocols designed to limit radiation exposure to as low as reasonably achievable to attain images of sufficient resolution adequate for diagnostic evaluation.
--- NOTE | 2018-01-08 14:54 | Cardiology Report ---
APPROVED REPORT EKG Measurement Heart [id number] Normal sinus rhythm Moderate voltage criteria for LVH, may be normal variant Cannot rule out Septal infarct, age undetermined Abnormal ECG
== END 2018-01-08 02:34 | disposition home or self-care (01) ==
LOC: EMR 01:13
DX: R51 Headache (principal); I10 Essential (primary) hypertension; E11.9 Type 2 diabetes mellitus without complications; Z86.73 Personal history of transient ischemic attack (TIA), and cerebral infarction without residual deficits; Z87.19 Personal history of other diseases of the digestive system
CPT/HCPCS: 36415; 70450; 71045; 80053; 82550; 82553; 84484; 85025; 93005; 96374; 99284; J0360

== ENCOUNTER 2020-10-25 13:53 | Emergency (ER) | payer MEDICAID, MEDICARE, OTHER ==
[~2020-10-25] VITALS: Ht 165.1 cm; Wt 77.1 kg
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
[2020-10-25] MEDS ORDERED: Acetaminophen 500mg (ES) tab ORAL ONE (14:15)
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
[2020-10-25] MEDS ORDERED: IBUPROFEN600 M1 ORAL (15:46)
[2020-10-25] MEDS ORDERED: ROBAXIN-500MG ORAL (15:46)
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
[2020-10-25 16:15] VITALS: BP 142/68
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
== END 2020-10-25 16:15 | disposition home or self-care (01) ==
LOC: EDBD 13:53 → EMR 14:40
DX: S80.01XA Contusion of right knee, initial encounter (principal); S00.93XA Contusion of unspecified part of head, initial encounter; S16.1XXA Strain of muscle, fascia and tendon at neck level, initial encounter; V03.90XA Pedestrian on foot injured in collision with car, pick-up truck or van, unspecified whether traffic or nontraffic accident, initial encounter; Y93.01 Activity, walking, marching and hiking; I10 Essential (primary) hypertension; E11.9 Type 2 diabetes mellitus without complications; I69.351 Hemiplegia and hemiparesis following cerebral infarction affecting right dominant side; R51.9 Headache, unspecified; M51.27 Other intervertebral disc displacement, lumbosacral region; M17.11 Unilateral primary osteoarthritis, right knee; J32.0 Chronic maxillary sinusitis; M47.814 Spondylosis without myelopathy or radiculopathy, thoracic region
CPT/HCPCS: 70450; 72125; 72128; 72131; 99284